=== PATIENT | female | born 1945 | race Caucasian/White ===

== ENCOUNTER 2017-10-18 15:02 | Emergency (ER) | payer MEDICARE, OTHER ==
[2017-10-18 15:31] VITALS: BP 97/54; PULSE 74; RESP 18; TEMP 97.6
--- NOTE | 2017-10-18 15:47 | ED ---
Fall HPI - General Chief Complaint: Fall Stated Complaint: RIght Arm Pain Time Seen by Provider: 10/18/17 15:12 Source: patient, EMS, RN notes reviewed Mode of arrival: EMS - History of Present Illness Initial Comments: This is a 71-year-old female who presents to the emergency department with chief complaint of fall injury. Patient is a resident of an [facility] and she was transported to the emergency department via EMS. Patient had a fall earlier today. She states she tripped over her own feet. She complains of right upper arm pain. Patient states she is unable to move her right arm. Denies any other injuries. Patient does have a history of dementia so is unable to answer some questions. Denies any other injuries. Has no other complaints. Denies head injury, neck pain or loss of consciousness. Denies fever, chills, chest pain, shortness of breath, abdominal pain, nausea or vomiting, numbness or tingling, headache or vision changes. - Related Data Home Medications Medication Instructions Recorded Confirmed Aspirin EC [Ecotrin] 81 mg PO DAILY 06/03/14 10/18/17 OLANZapine [ZyPREXA] 5 mg PO DAILY 06/03/14 10/18/17 ALPRAZolam [Xanax] 0.25 mg PO PC-SUPPER 10/18/17 10/18/17 Escitalopram [Lexapro] 5 mg PO DAILY 10/18/17 10/18/17 Mirabegron [Myrbetriq] 50 mg PO DAILY 10/18/17 10/18/17 Rosuvastatin Calcium [Crestor] 5 mg PO DAILY 10/18/17 10/18/17 amLODIPine [Norvasc] 10 mg PO DAILY 10/18/17 10/18/17 busPIRone HCL 15 mg PO BID 10/18/17 10/18/17 traZODone HCL 100 mg PO HS 10/18/17 10/18/17 Previous Rx's Medication Instructions Recorded Acetaminophen-Codeine 300-30mg 1 tab PO Q4H PRN #12 tablet 10/18/17 [Tylenol #3] Allergies Allergy/AdvReac Type Severity Reaction Status Date / Time No Known Allergies Allergy Verified 10/18/17 15:30 Review of Systems ROS Statement: Those systems with pertinent positive or pertinent negative responses have been documented in the HPI. ROS Other: All systems not noted in ROS Statement are negative. Past Medical History Past Medical History: Unable to Obtain, GERD/Reflux Additional Past Medical History / Comment(s): dementia History of Any Multi-Drug Resistant Organisms: None Reported Past Surgical History: Unable to Obtain, Hysterectomy Past Psychological History: Schizophrenia Smoking Status: Former smoker Past Alcohol Use History: None Reported Past Drug Use History: None Reported General Exam - General Exam Comments Initial Comments: General: Awake and alert, well-developed; in no apparent distress. Sitting on the edge of ED stretcher. HEENT: Head atraumatic, normocephalic. Pupils are equal, round and reactive to light. Extraocular movements intact. Oropharynx moist without erythema or exudate. Missing dentition. Neck: Supple. Normal ROM. Cardiovascular: Regular rate and rhythm. No murmurs, rubs or gallops. Chest symmetrical. Respiratory: Lungs clear to auscultation bilaterally. No wheezes, rales or rhonchi. Normal respiratory effort with no use of accessory muscles. Musculoskeletal: Patient's right arm is hanging by her side and she is unable to lift it off of the bed. Passive range of motion is intact. There is grinding felt with movement of the right elbow. There is no tenderness on palpation of right elbow, humerus or shoulder. Sensation is intact. Radial pulses are 2+ equal and palpable bilaterally. Skin: [place], warm and dry without rashes or lesions. Limitations: altered mental status, physical limitation Course Vital Signs 10/18/17 15:02 Temperature 97.6 F Pulse Rate 74 Respiratory 18 Rate Blood Pressure 97/54 O2 Sat by Pulse 100 Oximetry Medical Decision Making - Medical Decision Making This is a 71-year-old female who presented via EMS from an [facility] home after having a fall earlier today. Patient complained of right arm pain. X-ray revealed a proximal humerus fracture. Patient's arm was placed in a sling. She tolerated well without complication. She is neurovascularly intact. She will be discharged home with recommendation to follow-up with orthopedics tomorrow morning. Patient is in agreement with plan and voices understanding. All questions were answered. - Radiology Data Radiology results: report reviewed X-ray right shoulder findings: There is an impacted impossibly comminuted proximal humeral fracture present in the proximal right humerus. Osteoarthritic changes extensive with joint space loss of the humeral joint. Bone mineralization is reduced. No dislocation. Difficult to exclude a small loose bodies. Impression: Fractures described. Osteoarthritis is severe. Right humerus x-ray findings: There is a fracture involving the surgical neck of the humerus. Severe arthropathy of the before meals joint and glenohumeral joint. Diffuse osteopenia. Impression: 1. Impacted fracture right humeral neck. 2. Severe arthropathy. Right elbow x-ray findings: 3 views of the elbow didn't treat no pathologic joint effusion. The osseous structures are intact. There is no acute fracture dislocation. Diffuse osteopenia noted. Impression: 1. No acute fracture dislocation. Disposition Clinical Impression: Proximal humeral fracture Disposition: HOME SELF-CARE Condition: Good Instructions: Proximal Humerus Fracture (ED) Additional Instructions: Please follow up with the Dr. Bernal tomorrow morning. Please take medications as prescribed. Please follow up with primary care provider within 1- 2 days. Return to emergency department if symptoms should worsen or any concerns arise. Prescriptions: Acetaminophen-Codeine 300-30mg [Tylenol #3] 1 tab PO Q4H PRN #12 tablet PRN Reason: Pain Referrals: None,Stated [Primary Care Provider] - 1-2 days Palomo Bernal DO [Doctor of Osteopathic Medicine] - 1-2 days Time of Disposition: 16:48
--- NOTE | 2017-10-18 15:49 | XR ---
EXAMINATION TYPE: XR humerus RT DATE OF EXAM: 10/18/2017 COMPARISON: NONE HISTORY: Pain TECHNIQUE: 2 views submitted. FINDINGS: There is a fracture involving the surgical neck of the humerus. Severe arthropathy of the AC joint an d glenohumeral joint. Diffuse osteopenia. IMPRESSION: 1. Impacted fracture right humeral neck. 2. Severe arthropathy.
--- NOTE | 2017-10-18 15:50 | XR ---
EXAMINATION TYPE: XR elbow complete RT DATE OF EXAM: 10/18/2017 COMPARISON: NONE HISTORY: Pain FINDINGS: Three views of the elbow demonstrate no pathologic joint effusion. The osseous structures are intact . There is no acute fracture or dislocation. Diffuse osteopenia noted IMPRESSION: 1. No acute fracture or dislocation. If symptoms persist follow-up study in 7 to 10 days could be ob tained.
--- NOTE | 2017-10-18 15:51 | XR ---
Right shoulder HISTORY: Trauma and pain 3 views of the right shoulder. Correlation to proximal right humerus 10/18/2017 and most recent chest x -ray 02/11/2010. There is an impacted and possibly comminuted proximal humeral fracture present in the proximal right humerus. Osteoarthritic change is extensive with joint space loss in the humeral joint. Bone minerali zation is reduced. No dislocation. Difficult to exclude small loose bodies. IMPRESSION: Fractures described. Osteoarthritis is severe.
== END 2017-10-18 17:24 | disposition home or self-care (01) ==
LOC: EC 15:02
DX: S42.211A Unspecified displaced fracture of surgical neck of right humerus, initial encounter for closed fracture (principal); F20.9 Schizophrenia, unspecified; Z87.891 Personal history of nicotine dependence; Z79.82 Long term (current) use of aspirin; Z79.899 Other long term (current) drug therapy; W01.0XXA Fall on same level from slipping, tripping and stumbling without subsequent striking against object, initial encounter
CPT/HCPCS: 99283

== ENCOUNTER → 2021-03-26 | Outpatient (CLI) | payer MEDICARE, OTHER ==
[2021-03-26 14:42] LABS: HCT 40.9 % (34.0-46.0); HGB 13.8 gm/dL (11.4-16.0); MCH 35.3 pg (25.0-35.0); MCHC 33.8 g/dL (31.0-37.0); MCV 104.6 fL (80.0-100.0); Macrocytosis Slight; Mean Platelet Volume 8.3; Platelet Count 221 k/uL (150-450); RBC 3.91 m/uL (3.80-5.40); RDW 12.3 % (11.5-15.5); WBC 6.5 k/uL (3.8-10.6)
[2021-03-26 14:46] LABS: Appearance,Urine Clear (Clear); Bilirubin,Urine Negative (Negative); Blood,Urine Negative (Negative); Color,Urine Light Yellow; Glucose,Urine (UA) Negative (Negative); Ketones,Urine Negative (Negative); Leukocyte Esterase,Urine Trace (Negative); Mucus,Urine Rare /hpf; Nitrite,Urine Negative (Negative); PH, Urine 5.5 (5.0-8.0); Protein,Urine Negative (Negative); RBC,Urine <1 /hpf (0-5); Specific Gravity,Urine 1.007 (1.001-1.035); Urobilinogen,Urine <2.0 mg/dL (<2.0); WBC,Urine 2 /hpf (0-5)
[2021-03-26 14:51] LABS: INR 0.9 (<1.2); Partial Thromboplastin Time 24.7 sec (22.0-30.0); Prothrombin Time 9.7 sec (9.0-12.0)
[2021-03-26 14:56] LABS: ALT 17 U/L (4-34); AST 27 U/L (14-36); African American GFR (CKD) >90 (>60 ml/min/1.73 sqM); Albumin 4.5 g/dL (3.5-5.0); Alkaline Phosphatase 69 U/L (38-126); Anion Gap 11 mmol/L; Blood Urea Nitrogen 22 mg/dL (7-17); Calcium 9.8 mg/dL (8.4-10.2); Carbon Dioxide 26 mmol/L (22-30); Chloride 104 mmol/L (98-107); Glucose 92 mg/dL (74-99); Non-African American GFR(CKD) 79 (>60 ml/min/1.73 sqM); Potassium 4.5 mmol/L (3.5-5.1); Sodium 141 mmol/L (137-145); Total Bilirubin 0.3 mg/dL (0.2-1.3); Total Protein 7.2 g/dL (6.3-8.2)
== END | disposition home or self-care (01) ==
LOC: LABPAT 13:15
PROVIDERS: ATTEND Orthopaedic Surgery
DX: Z01.812 Encounter for preprocedural laboratory examination (principal); Z01.810 Encounter for preprocedural cardiovascular examination
CPT/HCPCS: 36415; 80053; 81001; 85027; 85610; 85730; 87070; 93005

== ENCOUNTER 2021-03-31 09:55 | Day surgery (SDC) | payer MEDICARE, OTHER ==
[2021-03-27 15:42] VITALS: BMI 19.1
[~2021-03-31 09:55] MED LIST: ACETAMINOPHEN TAB 500 MG TAB PO PRN; DEXAMETHASONE SOD PHOSPHATE 4 MG/ML 1 ML VIAL IV ONE; GABAPENTIN 300 MG CAP PO PRN; HYDROcodone/APAP 7.5-325MG 1 EACH TAB PO PRN; HYDROmorphone 0.2 MG/1 ML SYRINGE IVP PRN; HYDROmorphone 0.5 MG/0.5 ML SYRINGE IVP PRN; MAGNESIUM HYDROXIDE 2,400 MG/10 ML CUP PO PRN; MELOXICAM 7.5 MG TAB PO PRN; MIDAZOLAM 2 MG/2 ML VIAL IV PRN; NA PHOS,M-B/NA PHOS,DI-BA 133 ML ENEMA RECTAL PRN; NALOXONE 0.4 MG/ML 1 ML VIAL IV PRN; ONDANSETRON 4 MG/2 ML VIAL IVP ONE; ONDANSETRON 4 MG/2 ML VIAL IVP PRN; ROPIVACAINE/EPI/CLONIDINE/KET 50 ML SYRINGE MISCELLANE PRN; TRANEXAMIC ACID 1,000 MG in SODIUM CHLORIDE 0.9% 100 ML IVPB PRN; VANCOMYCIN 1,000 MG in SODIUM CHLORIDE 0.9% 250 ML IVPB PRN; bisacodyL 10 MG SUPP RECTAL PRN
[2021-03-31] MEDS: LACTATED RINGERS 1,000 ML IV SCH (10:55)
[2021-03-31] MEDS ORDERED: fentaNYL (PF) 50 MCG/ML 2 ML AMP IVP ONE (11:04)
[2021-03-31] MEDS ORDERED: MIDAZOLAM 2 MG/2 ML VIAL IVP ONE (11:04)
[2021-03-31] MEDS ORDERED: SUCCINYLCHOLINE CHLORIDE 100 MG/5 ML SYR IV ONE (11:21)
[2021-03-31] MEDS ORDERED: ROPIVACAINE 5 MG/ML 30 ML VIAL ONE (11:21)
[2021-03-31] MEDS ORDERED: fentaNYL (PF) 50 MCG/ML 2 ML AMP ONE (11:21)
[2021-03-31] MEDS ORDERED: TRANEXAMIC ACID 1,000 MG/10 ML VIAL ONE (11:21)
[2021-03-31] MEDS ORDERED: ePHEDrine SULFATE/0.9% NACL/PF 50 MG/5 ML SYRINGE IV ONE (11:21)
[2021-03-31] MEDS ORDERED: PROPOFOL 10 MG/ML 20 ML VIAL IV ONE (11:21)
[2021-03-31] MEDS ORDERED: SODIUM CHLORIDE 0.9% 100 ML BAG ONE (11:21)
[2021-03-31] MEDS ORDERED: LIDOCAINE 1% INJ 10MG/ML (20 ML MDV) ONE (11:21)
[2021-03-31] MEDS ORDERED: ceFAZolin 3,000 MG in SODIUM CHLORIDE 0.9% IRRIGATIO 3,000 ML IRRIGATION ONE (11:24)
--- NOTE | 2021-03-31 11:44 | P.ANPRN ---
Procedure Note - Anesthesia - Nerve Block Performed Right Adductor Canal Infusion Time Out Performed: Yes Date of Procedure: 03/31/21 Procedure Start Time: 11:04 Procedure Stop Time: 11:12 Location of Patient: PreOp Indication: Requested by Surgeon Specifically requested for management of pain by DrSwetha: Palomo Bernal Sedation Type: Sedate with meaningful contact maintained Preparation: Sterile Prep, Sterile Dressing Position: Supine Catheter: Indwelling Needle Types: Pajunk Needle Gauge: 18 Ultrasound used to visualize needle placement: Yes Ultrasound used to observe medication spread: Yes Injectate: 0.5% Ropivacaine (see comment for volume) (20 ml) Blood Aspirated: No Pain Paresthesia on Injection Noted: No Resistance on Injection: Normal Image Stored and Saved: Yes Events: Uneventful and Well Tolerated
[2021-03-31] MEDS ORDERED: ROPIVACAINE 0.2%-NS ON-Q PUMP 1,090 MG, EMPTY PAIN BALL 1 EACH MISCELLANE PRN (11:46)
--- NOTE | 2021-03-31 11:46 | P.ANPRN ---
Procedure Note - Anesthesia - Nerve Block Performed Right iPack Single Time Out Performed: Yes Date of Procedure: 03/31/21 Procedure Start Time: 11:13 Procedure Stop Time: 11:20 Location of Patient: PreOp Indication: Requested by Surgeon Specifically requested for management of pain by DrSwetha: Palomo Bernal Sedation Type: Sedate with meaningful contact maintained Preparation: Sterile Prep Position: Left Lateral Needle Types: Pajunk Needle Gauge: 20 Ultrasound used to visualize needle placement: Yes Ultrasound used to observe medication spread: Yes Injectate: 0.5% Ropivacaine (see comment for volume) (20 ml) Blood Aspirated: No Pain Paresthesia on Injection Noted: No Resistance on Injection: Normal Image Stored and Saved: Yes Events: Uneventful and Well Tolerated
--- NOTE | 2021-03-31 12:40 | P.OP ---
Date of Procedure: 03/31/21 Preoperative Diagnosis: Severe osteoarthritis of the right knee with a valgus deformity Postoperative Diagnosis: Dear osteoarthritis of the right knee with a valgus deformity Procedure(s) Performed: Right total knee arthroplasty Implants: & Nephew Journey II Oxinium Bi-cruciate stablilized femoral component size 5, right & Nephew Journey nonporous tibial baseplate size 4, right & Nephew Journey II, constrained articular insert, size 10 mm, Size 3-4, right & Nephew Journey Amy II resurfacing patellar component, oval, 32 mm All components were cemented using Palacos R bone cement The articulation is Oxinium on polyethylene Anesthesia: GETA Surgeon: Palomo Bernal Shoemaker Apprentice #1: Kareen Aguilar Estimated Blood Loss (ml): 30 Pathology: other (Bone and cartilage) Condition: stable Disposition: PACU Indications for Procedure: After failure of conservative treatment we discussed the surgical and nonsurgical treatment options at length. Patient wishes to proceed with a total knee arthroplasty. Complications specific to this procedure were discussed at length, including but not limited to infection, bleeding, stiffness, and nerve injury. Covid-19 was also discussed at length with the patient, and they are aware of the current policies and procedures. The patient was given the option of delaying surgery, but they elect to proceed knowing these risks. Patient is aware of all these complications and informed consent was obtained Operative Findings: The operative findings are consistent with severe osteoarthritis of the right knee with a severe valgus Description of Procedure: Patient was seen in the preoperative area consent was reviewed and operative site was marked with a skin marker. Patient was then brought to the operating room and given preoperative antibiotics intravenously. A general anesthetic was administered by the anesthesia department. A tourniquet was placed on the upper thigh and the lower extremity was prepped and draped in usual sterile fashion. A gram of transexamic acid was given. A universal timeout was then performed which confirmed the patient's name, surgical site, ALLERGIES, and consent. The lower extremity was then exsanguinated and tourniquet was inflated to 250 mmHg. A standard and anterior midline approach to the knee was performed. The skin and subcutaneous tissue was dissected down to the patellar tendon. A medial parapatellar arthrotomy was then performed. The knee was then extended, the patellar was everted, and the knee was again flexed. Anterior horns of both menisci were excised, and a minimal medial release was performed because of the valgus deformity of the knee.. On gross visual inspection, there was complete loss of articular cartilage in all 3 compartments of the knee. There was also significant cartilage damage in the lateral compartment. There were multiple periarticular osteophytes which were then removed with a Ronguer. The femoral canal was then opened with the appropriate drill, and the intramedullary femoral cutting guide was then placed and set for 4 of valgus. The distal femoral cutting block was then pinned in place, and the distal femur was then cut. The cutting block was then removed and the cut was checked for flatness. Next, the sizing guide was then placed and set for 3 external rotation based off of the epicondylar axis and Whitesides line. After the femur was sized, the appropriate 4-in-1 cutting block was then pinned in place. The anterior condyles were cut without notching. The posterior and chamfer cuts were performed while protecting the collateral ligaments. The cutting block was then removed. Attention was then directed to the tibia. The remaining ACL was removed with a Ronguer, and the tibia was then gently subluxed forward with a large bent knee retractor. Any remaining menisci was excised. The posterior lateral corner was cauterized in order to cauterize the lateral geniculate artery. The extra medullary tibial cutting guide was then placed, set for the appropriate rotation, slope, and depth of resection. The proximal tibia cutting guide was then pinned in place. Proximal tibia was then cut and sized. The femoral trial was then placed. The box cutting guide was placed and then using the appropriate reamer, the bone was reamed for the box. Then the box osteotome was used to finish the reaming. Next trials were then placed with the appropriate-sized insert. The knee was able to fully extend and flex to 130 and was stable throughout all range of motion. The knee was then extended, patella everted. Patella was then measured, and then using an osteotomy guide, the patella was cut at the appropriate level. The patella was then measured and drilled and the patella trial was then placed. The knee was then taken through range of motion with the patella trial and the patella tracked normally. The knee was then extended patella trial was then removed and the patella was everted. Knee was then flexed and lug holes were drilled through the femoral trial and the femoral trial was then removed. The tibial was then exposed, and the tibial broach guide was then pinned in place after it was set for the appropriate rotation to allow for the most coverage without overhang. The tibia was then broached. The cut surfaces of bone were then irrigated with pulsatile lavage. The components were then opened, the cement was mixed, and the components were then cemented in place. The cement was allowed to harden with the knee in full extension. After the cemented hardened. The tourniquet was released, and hemostasis was obtained. A second gram of transexamic acid was given. The knee was again irrigated. The knee was again taken through range of motion and found to be stable throughout all range of motion of 0-130, and the patella tracked normally. The fascia was then closed with #2 strata fix suture. The subcutaneous tissue was closed with 3-0 Vicryl and 3-0 strata fix. Exofin glue was used for the skin and an Optifoam dressing was placed. Patient was then transferred to recovery room in stable condition. The veterinary technician assistant OUMAR Sanchez was required due the complexity surgery and the need for a skilled surgical supply assistant. She assisted in positioning, draping, retraction, and closure of the wound.
[2021-03-31] MEDS: HYDROmorphone 0.5 MG/0.5 ML SYRINGE IVP PRN ×2 (13:39→13:59)
--- NOTE | 2021-03-31 13:42 | XR ---
Limited right knee HISTORY: Status post right knee arthroplasty 2 views the right knee Patient is status post right knee arthroplasty. There is anatomic alignment. Lucency is present in th e soft tissues. IMPRESSION: Orthopedic follow-up.
[2021-03-31] MEDS: SODIUM CHLORIDE 0.9% 1,000 ML IV SCH (15:21)
[2021-03-31] MEDS: busPIRone HCl 5 MG TAB PO SCH ×2 (17:05→22:18)
--- NOTE | 2021-03-31 17:14 | P.CONS ---
History of Present Illness - Reason for Consult Consult date: 03/31/21 Medical management Requesting physician: Palomo Bernal - Chief Complaint Right knee pain - History of Present Illness Consultation: This is a very pleasant 75-year-old patient, follows with visiting physicians Dr. Rodas. Patient is somewhat limited historian. Resident of a foster home. Chronic stable medical conditions include GERD, hypertension, hyperlipidemia, me cierra impairment, osteoarthritis, schizophrenia. Patient is undergoing right total knee arthroplasty. Postprocedure pain is controlled. No chest pain no shortness of breath. No nausea vomiting. Laying in bed. Comfortable. Patient can only answer simple questions. Review of systems: GEN.: None EYES: None HEENT: None NECK: None RESPIRATORY: None CARDIOVASCULAR: None GASTROINTESTINAL: None GENITOURINARY: None MUSCULOSKELETAL: Joint pains LYMPHATICS: None HEMATOLOGICAL: None PSYCHIATRY: Forgetful NEUROLOGICAL: None Past medical history to include: GERD, hypertension, hyperlipidemia, memory impairment, osteoarthritis, schizophrenia Social history: Lives in a foster home. No smoking or alcohol. Family history: Patient does not remember Physical examination: VITAL SIGNS: Afebrile, 62, 16, 1 or 2 x 60, 100% on 2 L GENERAL: BMI 17.7, reclining in bed, awake, comfortable. EYES: Pupils equal. Conjunctiva normal. HEENT: External appearance of nose and ears normal, oral cavity grossly normal. NECK: JVD not raised; masses not palpable. HEART: First and second heart sounds are normal; no edema. LUNGS: Respiratory rate normal; clear to auscultation. ABDOMEN: Soft, nontender, liver spleen not palpable, no masses palpable. PSYCH: She knows her name, knows that she the hospital. Cannot tell the month of the yearl. MUSCULOSKELETAL skeletal: Dressing over the knee NEUROLOGICAL: Cranial nerves grossly intact; no facial asymmetry, power and sensation grossly intact. LYMPHATICS: No lymph nodes palpable in the axilla and neck INVESTIGATIONS, reviewed in the clinical context: Preadmission labs: WBC 6.5 hemoglobin 13.8 potassium 4.5 creatinine 0.76 Coronavirus [PCR] not detected Assessment plan: -Right total knee arthroplasty On aspirin twice a day by orthopedics for DVT prophylaxis -Chronic schizophrenia Continue with Abilify, Lexapro, BuSpar, trazodone -Chronic insomnia On melatonin, trazodone -GERD -Hyperlipidemia Continue with$ -Essential hypertension Hold off Norvasc for now, blood pressure any lower side -Severe cognitive impairment -Chronic constipation Continue with senna -Primary osteoarthritis multiple joints On anti-inflammatory -Chronic urinary stress incontinence Continue with myrbetriq Care was discussed with the patient. Home medications resumed. Norvasc has been held. Aspirin for DVT prophylaxis. Thank you Dr. Bernal Past Medical History Past Medical History: GERD/Reflux, Hyperlipidemia, Hypertension, Memory Impairment, Osteoarthritis (OA) Additional Past Medical History / Comment(s): dementia, urinary frequency History of Any Multi-Drug Resistant Organisms: None Reported Past Surgical History: Hysterectomy Past Anesthesia/Blood Transfusion Reactions: No Reported Reaction Additional Past Anesthesia/Blood Transfusion Reaction / Comm: caregiver unaware of any problems Past Psychological History: Schizophrenia Smoking Status: Never smoker Past Alcohol Use History: None Reported Past Drug Use History: None Reported - Past Family History Mother Family Medical History: Unable to Obtain Medications and Allergies Home Medications Medication Instructions Recorded Confirmed Type Aspirin EC [Ecotrin] 81 mg PO DAILY 06/03/14 03/27/21 History Escitalopram [Lexapro] 20 mg PO DAILY 10/18/17 03/27/21 History Mirabegron [Myrbetriq] 50 mg PO HS 10/18/17 03/27/21 History Rosuvastatin Calcium [Crestor] 5 mg PO HS 10/18/17 03/27/21 History amLODIPine [Norvasc] 10 mg PO DAILY 10/18/17 03/27/21 History busPIRone HCL 15 mg PO TID 10/18/17 03/27/21 History traZODone HCL 100 mg PO HS 10/18/17 03/27/21 History ARIPiprazole [Abilify] 2 mg PO HS 03/27/21 03/27/21 History Docusate [Colace] 100 mg PO BID 03/27/21 03/27/21 History Ibuprofen [Motrin] 800 mg PO Q6H PRN 03/27/21 03/27/21 History Lactulose 10 gm PO DIRECTED PRN 03/27/21 03/27/21 History Melatonin 5 mg PO HS 03/27/21 03/27/21 History Omeprazole [PriLOSEC] 40 mg PO DAILY 03/27/21 03/27/21 History Sennosides [Senna] 2 tab PO HS 03/27/21 03/27/21 History Temazepam [Restoril] 30 mg PO HS 03/27/21 03/27/21 History Aspirin 325 mg PO BID #60 tab 03/31/21 Rx Celecoxib [CeleBREX] 200 mg PO DAILY 5 Days #5 capsule 03/31/21 Rx HYDROcodone/APAP 7.5-325MG [[place] 1 - 2 tab PO Q6H PRN #32 tab 03/31/21 Rx 7.5-325] Ondansetron Odt [Zofran Odt] 1 tab PO Q8HR PRN #10 tab 03/31/21 Rx Sennosides [Senokot] 2 tab PO DAILY PRN #60 tablet 03/31/21 Rx Allergies Allergy/AdvReac Type Severity Reaction Status Date / Time No Known Allergies Allergy Verified 03/31/21 10:39 Physical Exam Vitals: Vital Signs Temp Pulse Resp BP Pulse Ox 03/31/21 14:29 62 16 102/60 100 03/31/21 14:16 60 16 105/52 100 03/31/21 14:01 60 16 101/51 92 L 03/31/21 13:45 62 16 113/56 92 L 03/31/21 13:30 64 16 122/60 100 03/31/21 13:17 68 16 145/67 100 03/31/21 13:06 97.6 F 76 16 147/65 100 03/31/21 11:19 55 L 16 147/67 99 03/31/21 10:43 97.7 F 63 16 157/68 97 Intake and Output 03/31/21 03/31/21 03/31/21 06:59 14:59 22:59 Intake Total 1351 Output Total 30 Balance 1321 Intake: IV 1351 Output: Estimated Blood Loss 30 Other: Voiding Method Bedside Commode Bedpan Weight 51.2 kg
[2021-03-31] MEDS ORDERED: SENNOSIDES-DOCUSATE SODIUM 1 EACH TAB PO SCH (21:00)
[2021-03-31] MEDS ORDERED: MELATONIN 5 MG TABLET PO SCH (21:00)
[2021-03-31] MEDS ORDERED: NON FORMULARY DRUG (Mirabegron [Myrbetriq] 50 MG Tab.Er.24h) PO SCH (21:00)
[2021-03-31] MEDS ORDERED: ARIPiprazole 2 MG TAB PO SCH (21:00)
[2021-03-31] MEDS ORDERED: TEMAZEPAM 30 MG CAP PO SCH (21:00)
[2021-03-31] MEDS ORDERED: SENNOSIDES 8.6 MG TAB PO SCH (21:00)
[2021-03-31] MEDS ORDERED: ATORVASTATIN 10 MG TAB PO SCH (21:00)
[2021-03-31] MEDS ORDERED: traZODone HCL 100 MG TAB PO SCH (21:00)
[2021-03-31] MEDS ORDERED: TEMAZEPAM 15 MG CAP PO SCH (22:15)
[2021-03-31] MEDS: DOCUSATE 100 MG CAP PO SCH (22:18)
[2021-03-31] MEDS: ASPIRIN 325 MG TAB PO SCH (22:18)
[2021-04-01] MEDS: HYDROcodone/APAP 7.5-325MG 1 EACH TAB PO PRN ×2 (04:46→09:55)
[2021-04-01] MEDS: SODIUM CHLORIDE 0.9% 1,000 ML IV SCH (05:57)
[2021-04-01] MEDS: LACTATED RINGERS 1,000 ML IV SCH (05:57)
--- NOTE | 2021-04-01 06:55 | P.PN ---
Progress Note - Text Progress Note Date: 04/01/21 Postoperative day # 1 status post right total knee arthroplasty, and adductor canal catheter placed for postoperative analgesia, currently at ropivacaine 0.2% 8 mL per hour and continuous infusion, visual analogue scale is 3/10, patient using oral pain medication for breakthrough pain. Assessment and plan= Acute postoperative pain, adductor canal catheter for pain control, pain is well controlled we'll continue the same management.
[2021-04-01] MEDS ORDERED: PANTOPRAZOLE 40 MG TABLET PO SCH (07:30)
[2021-04-01 07:52] VITALS: BP 101/59; PULSE 61; RESP 17; TEMP 98.2
[2021-04-01] MEDS ORDERED: ESCITALOPRAM 20 MG TAB PO SCH (09:00)
[2021-04-01] MEDS: ASPIRIN 325 MG TAB PO SCH (09:05)
[2021-04-01] MEDS: busPIRone HCl 5 MG TAB PO SCH (09:05)
[2021-04-01] MEDS: DOCUSATE 100 MG CAP PO SCH (09:05)
[2021-04-01 09:22] LABS: HCT 31.5 % (37.2-46.3); HGB 10.1 g/dL (12.0-15.0); MCH 34.6 pg (27.0-32.0); MCHC 32.1 g/dL (32.0-37.0); MCV 107.9 fL (80.0-97.0); Mean Platelet Volume 11.4 fL (9.5-12.2); Platelet Count 195 X 10*3/uL (140-440); RBC 2.92 X 10*6/uL (4.10-5.20); RDW 12.1 % (11.5-14.5); WBC 8.06 X 10*3/uL (4.50-10.00)
[2021-04-01 11:09] LABS: Basophils # (A) 0.01 X 10*3/uL (0.00-0.10); Basophils % (A) 0.1 %; Eosinophils # (A) 0 X 10*3/uL (0.04-0.35); Eosinophils % (A) 0 %; Lymphocytes # (A) 0.66 X 10*3/uL (0.90-5.00); Lymphocytes % (A) 8.2 %; Macrocytosis (M) 2+; Monocytes # (A) 0.84 X 10*3/uL (0.20-1.00); Monocytes % (A) 10.4 %; Neutrophils # (A) 6.53 X 10*3/uL (1.80-7.70); Neutrophils % (A) 81.1 %
--- NOTE | 2021-04-01 11:24 | P.DS ---
Providers Expected date of discharge: 04/01/21 Attending physician: Palomo Bernal Consults: 03/31/21 08:58 Consult Physician Routine Consulting Provider: Ronen Turner Consult Reason/Comments: medical management if patient does not dc home same day. Do you want consulting provider notified?: Yes Primary care physician: Jaylen Rodas - Discharge Diagnosis(es) (1) Osteoarthritis of right knee Current Visit: Yes Status: Acute (2) Status post total right knee replacement Current Visit: Yes Status: Acute Hospital Course: This is a 75-year-old female who was last seen with complaint of continued right knee pain. The patient has a known history of degenerative arthritis of the right knee and presents to discuss surgical options. After discussion and consideration the patient elects to proceed with total right knee arthroplasty. The patient is seen preoperatively by her primary care physician and cleared for surgery. The patient is admitted to [facility] for total right knee arthroplasty. The procedure is performed without complication or sequelae. Patient is doing well postoperatively. Vital signs are stable at discharge. Labs are stable at discharge. the patient is ambulating well with walker with minimal assistance. The patient is discharged to home on postop day #1 pending medical clearance. Please see orders and refer to the med rec for accurate list of medications. Patient Condition at Discharge: Good Plan - Discharge Summary Discharge Rx Participant: No New Discharge Prescriptions: New Aspirin 325 mg PO BID #60 tab Celecoxib [CeleBREX] 200 mg PO DAILY 5 Days #5 capsule HYDROcodone/APAP 7.5-325MG [[place] 7.5-325] 1 - 2 tab PO Q6H PRN #32 tab PRN Reason: Pain Sennosides [Senokot] 2 tab PO DAILY PRN #60 tablet PRN Reason: Constipation Ondansetron Odt [Zofran Odt] 1 tab PO Q8HR PRN #10 tab PRN Reason: Nausea No Action Aspirin EC [Ecotrin] 81 mg PO DAILY Rosuvastatin Calcium [Crestor] 5 mg PO HS Escitalopram [Lexapro] 20 mg PO DAILY amLODIPine [Norvasc] 10 mg PO DAILY Mirabegron [Myrbetriq] 50 mg PO HS busPIRone HCL 15 mg PO TID traZODone HCL 100 mg PO HS Temazepam [Restoril] 30 mg PO HS Ibuprofen [Motrin] 800 mg PO Q6H PRN PRN Reason: Pain Omeprazole [PriLOSEC] 40 mg PO DAILY Docusate [Colace] 100 mg PO BID ARIPiprazole [Abilify] 2 mg PO HS Sennosides [Senna] 2 tab PO HS Melatonin 5 mg PO HS Lactulose 10 gm PO DIRECTED PRN PRN Reason: Constipation Discharge Medication List Aspirin EC [Ecotrin] 81 mg PO DAILY 06/03/14 [History] Escitalopram [Lexapro] 20 mg PO DAILY 10/18/17 [History] Mirabegron [Myrbetriq] 50 mg PO HS 10/18/17 [History] Rosuvastatin Calcium [Crestor] 5 mg PO HS 10/18/17 [History] amLODIPine [Norvasc] 10 mg PO DAILY 10/18/17 [History] busPIRone HCL 15 mg PO TID 10/18/17 [History] traZODone HCL 100 mg PO HS 10/18/17 [History] ARIPiprazole [Abilify] 2 mg PO HS 03/27/21 [History] Docusate [Colace] 100 mg PO BID 03/27/21 [History] Ibuprofen [Motrin] 800 mg PO Q6H PRN 03/27/21 [History] Lactulose 10 gm PO DIRECTED PRN 03/27/21 [History] Melatonin 5 mg PO HS 03/27/21 [History] Omeprazole [PriLOSEC] 40 mg PO DAILY 03/27/21 [History] Sennosides [Senna] 2 tab PO HS 03/27/21 [History] Temazepam [Restoril] 30 mg PO HS 03/27/21 [History] Aspirin 325 mg PO BID #60 tab 03/31/21 [Rx] Celecoxib [CeleBREX] 200 mg PO DAILY 5 Days #5 capsule 03/31/21 [Rx] HYDROcodone/APAP 7.5-325MG [[place] 7.5-325] 1 - 2 tab PO Q6H PRN #32 tab 03/31/21 [Rx] Ondansetron Odt [Zofran Odt] 1 tab PO Q8HR PRN #10 tab 03/31/21 [Rx] Sennosides [Senokot] 2 tab PO DAILY PRN #60 tablet 03/31/21 [Rx] Follow up Appointment(s)/Referral(s): Palomo Bernal DO [Doctor of Osteopathic Medicine] - 2 Weeks [facility] Visiting Nurse, [NON-STAFF] - ([facility] will call you to arrange your first visit for home physical therapy. ) Activity/Diet/Wound Care/Special Instructions: RN - Please call Camila at [phone] to go over d/c instructions and to arrange for a ride home Weightbearing as tolerated with a walker. Leave dressing intact. Dressing may be removed by home care nurse or by patient in 7 days. Then change dressing twice daily until follow up. May shower with initial dressing intact and after removal. If dressing become saturated, please remove. Recommend use of compression stockings daily until follow up to help prevent swelling and blood clots. May remove at night before sleeping. Please take aspirin 325mg twice daily for 30 days to prevent blood clots. Please follow up with [facility] and call with any questions or concerns, . Discharge Disposition: HOME WITH HOME HEALTH SERVICES
--- NOTE | 2021-04-01 16:13 | P.PN ---
Progress Note - Text Progress Note Date: 04/01/21 - Chief Complaint Right knee pain - History of Present Illness Consultation: This is a very pleasant 75-year-old patient, follows with visiting physicians Dr. Rodas. Patient is somewhat limited historian. Resident of a foster home. Chronic stable medical conditions include GERD, hypertension, hyperlipidemia, memory impairment, osteoarthritis, schizophrenia. Had right total knee arthroplasty. Can only answer simple questions Today: Laying in bed. Comfortable. Pain control. Oral intake fair. Denies any nausea vomiting. Review of systems: Was done for constitutional, cardiovascular, GI, pulmonary. relevant finding as above Current medications reviewed in today's electronic records Past medical history to include: GERD, hypertension, hyperlipidemia, memory impairment, osteoarthritis, schizophrenia Social history: Lives in a foster home. No smoking or alcohol. Family history: Patient does not remember Physical examination: VITAL SIGNS: 98.2, 61, 17, 10 1 x 59, 96% room air GENERAL: Laying in bed awake, comfortable. EYES: Pupils equal. Conjunctiva normal. HEENT: External appearance of nose and ears normal, oral cavity grossly normal. NECK: JVD not raised; masses not palpable. HEART: First and second heart sounds are normal; no edema. LUNGS: Respiratory rate normal; clear to auscultation. ABDOMEN: Soft, nontender, liver spleen not palpable, no masses palpable. PSYCH: She knows her name, knows that she the hospital. Cannot tell the month of the yearl. MUSCULOSKELETAL skeletal: Dressing over the knee INVESTIGATIONS, reviewed in the clinical context: WBC 8.0 hemoglobin 10.1 platelets 195 Preadmission labs: WBC 6.5 hemoglobin 13.8 potassium 4.5 creatinine 0.76 Coronavirus [PCR] not detected Assessment plan: -Right total knee arthroplasty On aspirin twice a day by orthopedics for DVT prophylaxis -Chronic schizophrenia Continue with Abilify, Lexapro, BuSpar, trazodone -Chronic insomnia On melatonin, trazodone -GERD -Hyperlipidemia Continue with$ -Essential hypertension Hold off Norvasc for now, blood pressure any lower side -Severe cognitive impairment -Chronic constipation Continue with senna -Primary osteoarthritis multiple joints On anti-inflammatory -Chronic urinary stress incontinence Continue with myrbetriq -Acute postprocedure blood loss anemia, as expected by surgery Continue current medication treatment plan. Patient is to follow-up with PCP upon discharge Thank you Dr. Bernal
[2021-04-01] MEDS ORDERED: TEMAZEPAM 15 MG CAP PO SCH (21:00)
== END 2021-04-01 14:31 | disposition home health service (06) ==
LOC: OR 09:55 → 4SSUR 13:38 → OR 04-01 14:31
PROVIDERS: ATTEND Orthopaedic Surgery
DX: M17.11 Unilateral primary osteoarthritis, right knee (principal); Z20.822 Contact with and (suspected) exposure to COVID-19; E78.5 Hyperlipidemia, unspecified; K21.9 Gastro-esophageal reflux disease without esophagitis; I10 Essential (primary) hypertension; F03.90 Unspecified dementia, unspecified severity, without behavioral disturbance, psychotic disturbance, mood disturbance, and anxiety; F20.9 Schizophrenia, unspecified; Z79.899 Other long term (current) drug therapy; Z79.82 Long term (current) use of aspirin; R35.0 Frequency of micturition
CPT/HCPCS: 97110; 97161; 64999; 64448; 76942; 85025; 88300; 87635; 73560; 27447; C1713; C1776; J2250; J3370; J1100; J0690 ×2; J2405; J2001; J3010; J2795; J0330; J2704; J1170

== ENCOUNTER 2021-07-31 11:46 | Day surgery (SDC) | payer MEDICARE, OTHER ==
[2021-07-29 15:12] VITALS: BMI 18.7
[~2021-07-31 11:46] MED LIST changes: -ACETAMINOPHEN TAB 500 MG TAB PO PRN; -GABAPENTIN 300 MG CAP PO PRN; -HYDROcodone/APAP 7.5-325MG 1 EACH TAB PO PRN; -HYDROmorphone 0.2 MG/1 ML SYRINGE IVP PRN; -MAGNESIUM HYDROXIDE 2,400 MG/10 ML CUP PO PRN; -MELOXICAM 7.5 MG TAB PO PRN; -MIDAZOLAM 2 MG/2 ML VIAL IV PRN; -NA PHOS,M-B/NA PHOS,DI-BA 133 ML ENEMA RECTAL PRN; -NALOXONE 0.4 MG/ML 1 ML VIAL IV PRN; -ONDANSETRON 4 MG/2 ML VIAL IVP PRN; -ROPIVACAINE/EPI/CLONIDINE/KET 50 ML SYRINGE MISCELLANE PRN; -TRANEXAMIC ACID 1,000 MG in SODIUM CHLORIDE 0.9% 100 ML IVPB PRN; -VANCOMYCIN 1,000 MG in SODIUM CHLORIDE 0.9% 250 ML IVPB PRN; -bisacodyL 10 MG SUPP RECTAL PRN
[2021-07-31 12:31] VITALS: RESP 18; TEMP 98.6
[2021-07-31] MEDS: LACTATED RINGERS 1,000 ML IV SCH ×2 (12:38→13:37)
[2021-07-31] MEDS ORDERED: MIDAZOLAM 2 MG/2 ML VIAL ONE (13:34)
[2021-07-31] MEDS ORDERED: KETAMINE 10 MG/ML 20 ML VIAL ONE (13:34)
[2021-07-31] MEDS ORDERED: fentaNYL (PF) 50 MCG/ML 2 ML AMP ONE (13:34)
[2021-07-31] MEDS ORDERED: PROPOFOL 10 MG/ML 20 ML VIAL IV ONE (13:34)
[2021-07-31] MEDS ORDERED: BUPIVACAINE (PF) 0.25% 30 ML VIAL SQ ONE (13:50)
[2021-07-31] MEDS ORDERED: LACTATED RINGERS 1,000 ML IV ONE (14:08)
--- NOTE | 2021-07-31 14:28 | P.OP ---
Date of Procedure: 07/31/21 Preoperative Diagnosis: Hammertoe second digits bilateral feet Postoperative Diagnosis: Same Procedure(s) Performed: Amputation of second digits at the metatarsal phalangeal joints bilateral feet Anesthesia: JENNIFER MEDINA, local Surgeon: Darrian Huizar Pathology: other (Bilateral second toes) Condition: stable Disposition: PACU Indications for Procedure: Painful crossover second toes nonresponsive to conservative means Description of Procedure: The patient was brought into the operating room placed on table supine position. Timeout was taken to confirm correct patient identifiers, correct procedure, and when the room was in agreement well-padded tourniquets were placed on both ankles. Then the patient was placed under IV sedation and then a total of 30 mL of 0.5% Marcaine was injected into both feet as proximal second digit blocks. Then both feet were prepped and draped in usual manner. The right foot was exsanguinated with an Esmarch bandage and the tourniquet inflated to 250 mmHg. Attention was directed to the base of the second toe where 2 semi-elliptical converging incisions were made at the base, leaving enough skin for closure. The incisions were deepened to the subcutaneous layer where a left cautery was then used to cauterize all bleeding vessels. Di ssection was then carried down to the metatarsal phalangeal joint and the capsule was released and the digit disarticulated. The wound is thoroughly irrigated with normal saline. And the skin closed with 3-0 nylon. Then attention was directed to the left foot which was also exsanguinated and the tourniquet inflated to 250mmHg. A similar procedure was performed on the second digit on the left foot as it was on the right without exception. Nonadherent gauze was placed over both incisions and a bulky dry dressings applied to both feet. The tourniquet was released and capillary refill return to the remaining digits on both feet. The patient tolerated above procedure and anesthesia well which recovery with vital signs stable.
[2021-07-31 14:44] VITALS: BP 137/66; PULSE 62
== END 2021-07-31 15:14 | disposition home or self-care (01) ==
LOC: OR 11:46
PROVIDERS: ATTEND Podiatrist
DX: M20.41 Other hammer toe(s) (acquired), right foot (principal)
CPT/HCPCS: 28810 ×2; J2250; J1100; J0690; J2405; J3010; J2704; 88305; 88311

== ENCOUNTER → 2021-08-18 | Outpatient (CLI) | payer MEDICARE, OTHER ==
--- NOTE | 2021-08-20 11:29 | MM ---
Reason for exam: screening (asymptomatic). Last mammogram was performed 4 years ago. History: Patient is postmenopausal. Physical Findings: A clinical breast exam by your physician is recommended on an annual basis and results should be correlated with mammographic findings. MG 3D Screening Mammo W/Cad Bilateral CC and MLO view(s) were taken. Prior study comparison: August 10, 2017, bilateral MG screening mammo w CAD. April 03, 2015, bilateral MG screening mammo w CAD. There are scattered fibroglandular densities. No significant changes when compared with prior studies. ASSESSMENT: Negative, BI-RAD 1 RECOMMENDATION: Routine screening mammogram of both breasts in 1 year.
== END | disposition home or self-care (01) ==
LOC: RADMAMWWP 15:16
PROVIDERS: ATTEND General Practice
DX: Z12.31 Encounter for screening mammogram for malignant neoplasm of breast (principal); Z78.0 Asymptomatic menopausal state
CPT/HCPCS: 77063; 77067

== ENCOUNTER → 2023-03-02 | Outpatient (CLI) | payer MEDICARE, OTHER ==
--- NOTE | 2023-03-02 13:01 | CT ---
EXAMINATION TYPE: CT abdomen wo con DATE OF EXAM: 03/02/2023 HISTORY: right side abd pain CT DLP: 301.8 mGycm. Automated Exposure Control for Dose Reduction was Utilized. TECHNIQUE: CT scan of the abdomen and pelvis is performed with oral but without IV contrast. COMPARISON: NONE FINDINGS: Within the limitations of a non-contrast study, the following observations are made. LUNG BASES: Mild bibasilar linear scarring and/or atelectasis. LIVER/GB: No significant abnormality is appreciated. PANCREAS: No significant abnormality is seen. SPLEEN: No significant abnormality is seen. ADRENALS: No significant abnormality is seen. KIDNEYS: No renal stones are seen bilaterally. There is mild left greater than right hydronephrosis w ithout significant hydroureter. There is 1.7 cm simple appearing thin-walled cyst laterally left kidn ey axial image 28. BOWEL: Moderate-sized hiatal hernia. Oral contrast does not reach level of the terminal ileum. No dino picious small or large bowel dilatation. Mild to moderate diffuse colonic fecal prominence. LYMPH NODES: No greater than 1cm abdominal lymph nodes are appreciated. 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 Alignment is strai ghtened on sagittal images. Moderate disc space narrowing and vacuum disc phenomenon L3-L4 through L5 -S1 levels is seen. OTHER: No significant additional abnormality is seen. IMPRESSION: 1. Mild left greater than right bilateral hydronephrosis without definitive midhydroureter or ureter calculus. Entire ureters and bladder are not included on this study. Follow-up advised. 2. [id number] diffuse colonic fecal stasis or constipation. No bowel obstruction.
== END | disposition home or self-care (01) ==
LOC: RADCTMAIN 10:04
PROVIDERS: ATTEND Family Medicine
DX: N13.30 Unspecified hydronephrosis (principal); R93.422 Abnormal radiologic findings on diagnostic imaging of left kidney
CPT/HCPCS: 74150